=== PATIENT | male | born 1960 | race Caucasian/White ===

== ENCOUNTER 2017-07-17 13:28 | Emergency (ER) | payer SELFPAY ==
[~2017-07-17] VITALS: Ht 180.3 cm; Wt 86.2 kg
[2017-07-17 16:48] VITALS: BP 122/81
== END 2017-07-17 16:49 | disposition home or self-care (01) ==
LOC: ER 13:28
DX: R60.0 Localized edema (principal); R20.0 Anesthesia of skin
CPT/HCPCS: 93970; 99283